=== PATIENT | male | born 1965 | race African-American/Black ===

== ENCOUNTER 2019-11-18 10:27 | Emergency (ER) | payer MEDICAID, OTHER ==
[~2019-11-18] VITALS: Ht 165.1 cm; Wt 104.0 kg
[2019-11-18 10:36] VITALS: BP 150/114
== END 2019-11-18 13:55 | disposition home or self-care (01) ==
LOC: ER 10:27
DX: R22.41 Localized swelling, mass and lump, right lower limb (principal); I10 Essential (primary) hypertension; E78.00 Pure hypercholesterolemia, unspecified; Z86.73 Personal history of transient ischemic attack (TIA), and cerebral infarction without residual deficits
CPT/HCPCS: 93971; 99284

== ENCOUNTER 2021-12-09 14:19 | Emergency (ER) | payer MEDICAID, OTHER ==
[~2021-12-09] VITALS: Ht 167.6 cm; Wt 107.0 kg
[~2021-12-09 14:19] MED LIST: NAPR-1176 MT
[2021-12-09 14:32] VITALS: BP 163/108
[2021-12-09] MEDS ORDERED: IBUPROFEN 600MG TABLET PO ONE (15:30)
[2021-12-09] MEDS ORDERED: NAP5EC MT (16:17)
== END 2021-12-09 16:32 | disposition home or self-care (01) ==
LOC: ER 14:19
DX: M77.52 Other enthesopathy of left foot and ankle (principal); I10 Essential (primary) hypertension
CPT/HCPCS: 73630; 99283

== ENCOUNTER 2023-05-02 08:41 | Emergency (ER) | payer OTHER ==
[~2023-05-02] VITALS: Ht 170.2 cm; Wt 107.0 kg
[~2023-05-02 08:41] MED LIST changes: +AMLO5TAB88 PO; +BENA5TAB40 MT; -NAPR-1176 MT
[2023-05-02 08:42] VITALS: O2SAT 99
[2023-05-02 09:07] LABS: BASOPHILS % 0.5 % (0.0-2.0); EOSINOPHILS % 0.1 % (0.0-5.0); HEMATOCRIT. 43.6 % (42.0-52.0); HEMOGLOBIN. 14.3 g/dL (14.0-18.0); LYMPHOCYTES % 18.5 % (20.0-50.0); MEAN CORPUSCULAR HEMOGLOBIN 28.2 pg (28.0-32.0); MEAN CORPUSCULAR HGB CONC 32.9 g/dL (31.0-37.0); MEAN CORPUSCULAR VOLUME 85.7 fL (80.0-94.0); MEAN PLATELET VOLUME 8.2 fl (7.4-10.4); NEUTROPHILS % 72.9 % (40.0-76.0); PLATELET 268 x1000/uL (130-400); RED BLOOD CELL COUNT 5.09 mill/uL (4.7-6.1); RED CELL DISTRIBUTION WIDTH 16.2 % (11.6-14.6); WHITE BLOOD COUNT 13.2 x1000/uL (4.5-11.0)
[2023-05-02] MEDS: ACETAMINOPHEN 325MG TABLET PO ONE (09:16)
[2023-05-02 09:26] LABS: ALANINE AMINOTRANSFERASE 35 IU/L (10-49); ALBUMIN 4.3 g/dL (3.2-4.8); ASPARTATE AMINOTRANSFERASE 18 IU/L (<34); BILIRUBIN TOTAL 1.4 mg/dL (0.1-1.0); CALCIUM 8.9 mg/dL (8.7-10.4); CARBON DIOXIDE 24 mEq/L (21-32); CHLORIDE 105 mEq/L (98-107); CREATININE 1.5 mg/dL (0.6-1.3); GLUCOSE 106 mg/dL (70-105); POTASSIUM 3.9 mEq/L (3.5-5.1); PROTEIN TOTAL 8.3 g/dL (6.0-8.3); SODIUM 140 mEq/L (136-145); UREA NITROGEN BLOOD 18 mg/dL (9-23)
[2023-05-02] MEDS ORDERED: GABA-529 MT (10:43)
[2023-05-02 11:06] VITALS: BP 135/98; PULSE 78; RESP 18; TEMP 98.7
== END 2023-05-02 11:07 | disposition home or self-care (01) ==
LOC: ER 08:41
DX: G62.9 Polyneuropathy, unspecified (principal); I10 Essential (primary) hypertension; E78.00 Pure hypercholesterolemia, unspecified; Z86.73 Personal history of transient ischemic attack (TIA), and cerebral infarction without residual deficits
CPT/HCPCS: 36415; 80053; 85025; 93970; 99284